=== PATIENT | male | born 1980 | race Caucasian/White ===

== ENCOUNTER 2017-06-19 01:10 | Emergency (ER) | payer OTHER ==
[~2017-06-19] VITALS: Ht 175.3 cm; Wt 71.6 kg
[~2017-06-19 01:10] MED LIST: FLOMAX0.4 MG PO; KEFLEX500 MG PO; PERCOCET 5/31 TABLET PO; ULTRAM50 MG PO; ZITHROMAX Z-PA250 MG PO; ZOFRAN4 MG PO
[2017-06-19 01:30] LABS: MCH 31.5 PG (29.0-34.0); MCV 90.1 FL (86-99); MEAN PLAT.VOLUME 9.6 uM^3 (9.0-12.4); PLATELET COUNT 218 K/uL (156-360); RBC DIS.WIDTH-CV 12.9 % (11.8-14.6); RBC DIS.WIDTH-SD 42.5 % (39-53); RED BLOOD COUNT 4.44 M/uL (4.00-5.50); WHITE BLOOD COUNT 9.5 K/uL (4.1-10.2)
[2017-06-19 01:44] LABS: CHLORIDE 105 mEq/L (99-109); POTASSIUM 3.3 mEq/L (3.7-5.4); SODIUM 138 mEq/L (136-147)
[2017-06-19 01:46] LABS: GLUCOSE 125 mg/dL (70-99)
[2017-06-19 01:47] LABS: ANION GAP 9 MEQ/L (2-14)
[2017-06-19 01:48] LABS: TOTAL BILIRUBIN 0.3 mg/dL (0.0-1.0)
[2017-06-19 01:49] LABS: ALKALINE PHOSPHATASE 58 IU/L (3-129)
[2017-06-19 01:50] LABS: GFR ESTIMATE (CALCULATED) > 59 mL/min/
[2017-06-19 01:51] LABS: UREA NITROGEN (BUN) 16 mg/dL (9-23)
[2017-06-19 01:53] LABS: LIPASE 21 U/L (1.0-51.0)
[2017-06-19] MEDS ORDERED: NORCO 5/3251 TABLET PO (04:16)
[2017-06-19 04:45] VITALS: BP 118/74
== END 2017-06-19 04:46 | disposition home or self-care (01) ==
LOC: EME 01:10 → EXP 01:10
DX: K42.9 Umbilical hernia without obstruction or gangrene (principal); S60.221A Contusion of right hand, initial encounter; F17.200 Nicotine dependence, unspecified, uncomplicated; W20.8XXA Other cause of strike by thrown, projected or falling object, initial encounter; Z87.820 Personal history of traumatic brain injury
CPT/HCPCS: 73130; 80053; 81003; 83690; 85027; 99281; 99284

== ENCOUNTER 2017-07-15 01:47 | Emergency (ER) | payer OTHER ==
[~2017-07-15] VITALS: Ht 175.3 cm; Wt 73.0 kg
[~2017-07-15 01:47] MED LIST changes: +NORCO 5/3251 TABLET PO
[2017-07-15] MEDS ORDERED: MOTRIN800 MG PO (03:27)
[2017-07-15 03:45] VITALS: BP 135/85
== END 2017-07-15 03:52 | disposition home or self-care (01) ==
LOC: EME 01:47
PROC: 0HQGXZZ Repair Left Hand Skin, External Approach (ICD-10-PCS; principal; 2017-07-15)
DX: S61.012A Laceration without foreign body of left thumb without damage to nail, initial encounter (principal); W26.0XXA Contact with knife, initial encounter; F17.200 Nicotine dependence, unspecified, uncomplicated
CPT/HCPCS: 99281; 99284

== ENCOUNTER 2017-08-24 09:16 | Emergency (ER) | payer OTHER ==
[~2017-08-24] VITALS: Ht 175.3 cm; Wt 68.7 kg
[~2017-08-24 09:16] MED LIST changes: +MOTRIN800 MG PO
[2017-08-24] MEDS ORDERED: FLONASE16 G1 BOTH NARES (11:04)
[2017-08-24] MEDS ORDERED: ZOFRAN ODT4 MG PO (11:04)
[2017-08-24 12:05] VITALS: BP 118/71
== END 2017-08-24 12:06 | disposition home or self-care (01) ==
LOC: EME 09:16
DX: J06.9 Acute upper respiratory infection, unspecified (principal); F17.200 Nicotine dependence, unspecified, uncomplicated
CPT/HCPCS: 71046; 87502; 99281; 99283

== ENCOUNTER 2017-10-05 15:55 | Emergency (ER) | payer OTHER ==
[~2017-10-05] VITALS: Ht 175.3 cm; Wt 67.8 kg
[~2017-10-05 15:55] MED LIST changes: +FLONASE16 G1 BOTH NARES; +ZOFRAN ODT4 MG PO
[2017-10-05 18:58] VITALS: BP 99/66
== END 2017-10-05 19:00 | disposition home or self-care (01) ==
LOC: EME 15:55
DX: S61.227A Laceration with foreign body of left little finger without damage to nail, initial encounter (principal); W01.10XA Fall on same level from slipping, tripping and stumbling with subsequent striking against unspecified object, initial encounter; F17.200 Nicotine dependence, unspecified, uncomplicated
CPT/HCPCS: 73130; 99281; 99284; S0020